=== PATIENT | male | born 1965 | race Caucasian/White ===

== ENCOUNTER 2021-07-19 18:56 | Inpatient (IN) | payer BC ==
[2021-07-19] MEDS ORDERED: NA CHLORIDE 0.9% 1,000 ML ONE ×3 (19:53→22:14)
[2021-07-19 20:15] LABS: Absolute Lymphocytes (CBC) 3.5 K/uL (0.7-4.9); Hematocrit 54.7 % (39.6-49.0); Lymphocytes % 18.6 % (15.3-44.8); MPV 8.1 fL (7.6-11.3)
[2021-07-19 20:16] LABS: Protime INR 1.06
[2021-07-19] MEDS ORDERED: ONDANSETRON 4 MG (ODT) TAB ONE (20:22)
[2021-07-19] MEDS ORDERED: FAMOTIDINE 20 MG/2 ML VIAL IV ONE (20:23)
[2021-07-19] MEDS ORDERED: ALBUTEROL INHALER 60 PUFF/8 GM IH ONE (20:23)
[2021-07-19] MEDS ORDERED: ONDANSETRON 4 MG/2 ML VIAL ONE (20:23)
--- NOTE | 2021-07-19 20:37 | RAD REPORT ---
EXAM DESCRIPTION: RAD - Chest Single View - 07/19/2021 8:26 pm CLINICAL HISTORY: SOB COMPARISON: No comparisons FINDINGS: Lines: None. Lungs: No evidence of edema or pneumonia. Pleural: No significant pleural effusions or pneumothorax. Cardiac: The heart size is within normal limits. Bones: No acute fractures. Other: IMPRESSION: No acute cardiopulmonary disease.
--- NOTE | 2021-07-19 20:46 | RAD REPORT ---
EXAM DESCRIPTION: CT - Head Brain Wo Cont - 07/19/2021 8:32 pm CLINICAL HISTORY: Dizziness COMPARISON: No comparisons TECHNIQUE: All CT scans are performed using dose optimization technique as appropriate and may inclu de automated exposure control or mA/KV adjustment according to patient size. FINDINGS: No intracranial hemorrhage, hydrocephalus or extra-axial fluid collection.No areas of brai n edema or evidence of midline shift. The paranasal sinuses and mastoids are clear. The calvarium is intact. IMPRESSION: No acute intracranial abnormality.
[2021-07-19 21:28] LABS: Urine Blood Negative (Negative); Urine Glucose Negative (Negative); Urine Protein 2+ (Negative); Urine Specific Gravity >=1.030 (1.005-1.030); Urine pH 5.5 (5.0-7.0)
[2021-07-19 21:50] LABS: Barbiturates NEGATIVE (NEGATIVE); Benzodiazepines NEGATIVE (NEGATIVE); Cocaine NEGATIVE (NEGATIVE); METHAMPHETAM NEGATIVE (NEGATIVE); Methadone NEGATIVE (NEGATIVE); Opiates NEGATIVE (NEGATIVE); Phencyclidine NEGATIVE (NEGATIVE); THC Cannibis NEGATIVE (NEGATIVE)
[2021-07-19 21:51] LABS: ALT/SGPT 42 U/L (12-78); AST/SGOT 22 U/L (15-37); Albumin 4.3 g/dL (3.4-5.0); Alkaline Phosphatase 117 U/L (45-117); BUN Blood Urea Nitrogen 38 mg/dL (7-18); Bicarbonate 23 mmol/L (21-32); Bilirubin Direct 0.1 mg/dL (0-0.2); Bilirubin Total 0.4 mg/dL (0.2-1.0); Creatine Phosphokinase 167 U/L (39-308); Glucose Level 113 mg/dL (74-106); Lipase 148 U/L (73-393); Magnesium 2.6 mg/dL (1.8-2.4); NT PRO-BNP 46 pg/mL (<125); Phosphorus 3.4 mg/dL (2.5-4.9); Potassium 3.9 mmol/L (3.5-5.1); Protein, Total 8.3 g/dL (6.4-8.2); Sodium Level 140 mmol/L (136-145); Troponin (Emerg Dept Use Only) < 0.02 ng/mL (0.0-0.045)
--- NOTE | 2021-07-19 22:33 | ER ---
Nurse's Notes [facility] Name: Gurjit Pugh Age: 56 yrs Sex: Male : 1965 Arrival Date: 07/19/2021 Time: 18:57 Bed 28 Private MD: Diagnosis: Acute Kidney Injury;Dehydration Presentation: 07/19 19:00 Chief complaint: Patient states: Pt states "I was outside but I was in the shad and had aa5 plenty of water and I just kept getting exhaustion episodes". Pt describes episodes as generalized weakness, felling lightheaded, and dizzy. Pt reports episodes x 1 year ago but worse today. Pt also reports SOB and vomiting. 19:00 Acuity: CLEOPATRA 2 aa5 19:00 Coronavirus screen: vomiting. Ebola Screen: Patient negative for fever greater than or aa5 equal to 101.5 degrees Fahrenheit, and additional compatible Ebola Virus Disease symptoms. Initial Sepsis Screen: Does the patient meet any 2 criteria? Systolic BP < 90 mmHg. HR > 90 bpm. Does the patient have a suspected source of infection? No. Patient's initial sepsis screen is negative. Risk Assessment: Do you want to hurt yourself or someone else? Patient reports no desire to harm self or others. Onset of symptoms was July 19, 2021. 19:00 Method Of Arrival: Wheelchair aa5 Triage Assessment: 21:55 General: Appears in no apparent distress. General: Appears Behavior is calm, ms4 cooperative. Pain: Denies pain. 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 - Social history:: Smoking status: Patient denies any tobacco usage or history of. Screenin:55 Abuse screen: Denies threats or abuse. Denies injuries from another. Nutritional ms4 screening: No deficits noted. Tuberculosis screening: No symptoms or risk factors identified. Fall Risk None identified. Assessment: 21:21 Also complains of shortness of breath. Reassessment: Patient appears in no apparent ms4 distress at this time. No changes from previously documented assessment. Patient and/or family updated on plan of care and expected duration. Pain level reassessed. Pain: Denies pain. Pain does not radiate. Pain began suddenly. Cardiovascular: No deficits noted. Vital Signs: 19:00 BP 77 / 34; Pulse 110; Resp 20 S; Temp 97.6(O); Pulse Ox 98% on R/A; Weight 113.4 kg aa5 (R); Height 6 ft. 1 in. (185.42 cm) (R); Pain 0/10; 21:21 BP 108 / 70; Pulse 98; Resp 18; Temp 98.2; Pulse Ox 98% ; Pain 0/10; ms4 21:54 BP 95 / 60; Pulse 95; Resp 16; Pulse Ox 96% on R/A; Pain 0/10; ms4 19:00 Body Mass Index 32.98 (113.40 kg, 185.42 cm) [facility] ED Course: 18:57 Patient arrived in ED. as 19:00 Arm band placed on. 5 19:03 Triage completed. 5 19:07 EKG completed in triage. Results shown to MD. [facility] 19:11 Guillermo Grady MD is Attending Physician. 7 19:11 EKG done, by ED staff, reviewed by Guillermo Grady MD. 3 21:45 Blood Culture Sent. ms4 21:45 CORONAVIRUS Sent. ms4 21:45 COVID-19 : Document "Date of Symptom Onset" if Symptomatic. Sent. ms4 21:45 Influenza Screen (a \\T\\ B) Sent. ms4 21:45 UDS Sent. ms4 21:55 Patient has correct armband on for positive identification. classroom monitor on. Pulse ms4 ox on. NIBP on. 21:55 No provider procedures requiring assistance completed. Patient maintains SpO2 ms4 saturation greater than 95% on room air. 22:31 Silvio Dan MD is Hospitalizing Provider. [facility] 23:31 Patient admitted, IV remains in place. bb Administered Medications: 19:33 Drug: NS 0.9% 1000 ml Route: IV; Rate: 1000 ml; Site: right hand; ms4 20:10 Drug: Zofran (Ondansetron) 4 mg Route: IVP; Site: right hand; ms4 20:10 Drug: Pepcid (famotidine) 20 mg Route: IVP; Site: right hand; ms4 20:10 Drug: Albuterol HFA Inhaler 2 puffs Route: Inhalation; ms4 21:21 Drug: NS 0.9% 1000 ml Route: IV; Rate: 1000 ml; Site: right hand; ms4 21:46 Drug: NS 0.9% 1000 ml Route: IV; Rate: 1000 ml; Site: left antecubital; ms4 Outcome: 22:32 Decision to Hospitalize by Provider. [facility] 23:31 Admitted to ER Hold. Please see [facility] for further documentation. bb 23:31 Condition: stable 23:31 Instructed on the need for admit. 07/20 17:27 Patient left the ED. ld1 Signatures: Araseli Bermudez Brenda, RN RN Kate Montano RN RN aa5 Avani Michele [facility] Guillermo Grady MD MD [facility] Penny Clayton RN RN ld1 Audrey Timmons RN RN ms4 Corrections: (The following items were deleted from the chart) 07/19 19:05 19:03 PSHx: None; aa5 aa5
--- NOTE | 2021-07-19 22:33 | EDPHYS ---
Physician Documentation [facility] Name: Gurjit Pugh Age: 56 yrs Sex: Male : 1965 Arrival Date: 07/19/2021 Time: 18:57 Bed 28 Private MD: ED Physician Guillermo Grady HPI: 07/19 19:15 This 56 yrs old Male presents to ER via Wheelchair with complaints of mh7 Shortness Of Breath, Vomiting, General Weakness. 19:15 The patient has shortness of breath at rest, with light activity. Onset: The mh7 symptoms/episode began/occurred today. Duration: The symptoms are continuous, and are unchanged since they started. The patient's shortness of breath is aggravated by exertion, light activity, is alleviated by nothing. Associated signs and symptoms: Pertinent positives: diaphoresis, dizziness, nausea, vomiting, Generalized weakness/fatigue since yesterday, Pertinent negatives: chest pain, non-productive cough, productive cough, fever, hemoptysis, loss of consciousness, numbness in extremities, visual changes. Severity of symptoms: At their worst the symptoms were moderate today, in the emergency department the symptoms are unchanged. Patient reports generalized weakness/fatigue and muscle aches that started yesterday. He states he was out fishing since 5 AM this morning and during the day developed shortness of breath, nausea, vomiting, dizziness with light headed sensation. He denies any headache, fever, chest pain, abdominal pain, cough, diarrhea, dysuria, numbness/tingling, or focal weakness.. 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 - Social history:: Smoking status: Patient denies any tobacco usage or history of. ROS: 19:15 Constitutional: Negative for fever, chills, and weight loss, Eyes: Negative for injury, mh7 pain, redness, and discharge, ENT: Negative for injury, pain, and discharge, Neck: Negative for injury, pain, and swelling, Cardiovascular: Negative for chest pain, palpitations, and edema. 19:15 Back: Negative for injury and pain, : Negative for injury, bleeding, discharge, and swelling, MS/Extremity: Negative for injury and deformity, Skin: Negative for injury, rash, and discoloration, Neuro: Negative for headache, weakness, numbness, tingling, and seizure, Psych: Negative for depression, anxiety, suicide ideation, homicidal ideation, and hallucinations, Allergy/Immunology: Negative for hives, rash, and allergies, Endocrine: Negative for neck swelling, polydipsia, polyuria, polyphagia, and marked weight changes, Hematologic/Lymphatic: Negative for swollen nodes, abnormal bleeding, and unusual bruising. 19:15 Abdomen/GI: Negative for abdominal pain, diarrhea, constipation, abdominal cramps, abdominal distension, anorexia, dysphagia, hematemesis, black/tarry stool, rectal pain, rectal bleeding, bowel incontinence, flatulence. Exam: 19:15 Head/Face: Normocephalic, atraumatic. Eyes: Pupils equal round and reactive to light, mh7 extra-ocular motions intact. Lids and lashes normal. Conjunctiva and sclera are non-icteric and not injected. Cornea within normal limits. Periorbital areas with no swelling, redness, or edema. 19:15 Neck: Trachea midline, no thyromegaly or masses palpated, and no cervical lymphadenopathy. Supple, full range of motion without nuchal rigidity, or vertebral point tenderness. No Meningismus. Chest/axilla: Normal chest wall appearance and motion. Nontender with no deformity. No lesions are appreciated. 19:15 Respiratory: Lungs have equal breath sounds bilaterally, clear to auscultation and percussion. No rales, rhonchi or wheezes noted. No increased work of breathing, no retractions or nasal flaring. Abdomen/GI: Soft, non-tender, with normal bowel sounds. No distension or tympany. No guarding or rebound. No evidence of tenderness throughout. Back: No spinal tenderness. No costovertebral tenderness. Full range of motion. Skin: Warm, dry with normal turgor. Normal color with no rashes, no lesions, and no evidence of cellulitis. MS/ Extremity: Pulses equal, no cyanosis. Neurovascular intact. Full, normal range of motion. 19:15 Psych: Awake, alert, with orientation to person, place and time. Behavior, mood, and affect are within normal limits. 19:15 Constitutional: The patient appears in no acute distress, alert, awake, uncomfortable. 19:15 ENT: Nose: is normal, Mouth: Oral mucosa: dry, Posterior pharynx: is normal, airway is patent, Dental exam: normal, Voice: is normal. 19:15 Cardiovascular: Rate: tachycardic, Rhythm: regular, Pulses: no pulse deficits are appreciated, Heart sounds: normal, normal S1and S2, Edema: is not appreciated, JVD: is not appreciated. 19:15 Neuro: Orientation: is normal, Mentation: is normal, Memory: is normal, Cranial nerves: grossly normal, Cerebellar function: is grossly normal, Motor: is normal, Sensation: is normal, Gait: not tested. seizure activity, is not displayed by the patient, Abnormal movements: there are no abnormal movements. Vital Signs: 19:00 BP 77 / 34; Pulse 110; Resp 20 S; Temp 97.6(O); Pulse Ox 98% on R/A; Weight 113.4 kg aa5 (R); Height 6 ft. 1 in. (185.42 cm) (R); Pain 0/10; 21:21 BP 108 / 70; Pulse 98; Resp 18; Temp 98.2; Pulse Ox 98% ; Pain 0/10; ms4 21:54 BP 95 / 60; Pulse 95; Resp 16; Pulse Ox 96% on R/A; Pain 0/10; ms4 19:00 Body Mass Index 32.98 (113.40 kg, 185.42 cm) aa5 MDM: 22:30 Differential diagnosis: Anemia Anxiety Reaction asthma, Bronchitis CHF exacerbation, mh7 Chronic Obstructive Pulmonary Disease Myocardial Infarction pneumonia, Pneumothorax Psychogenic pulmonary edema, reactive airway disease. Data reviewed: vital signs, nurses notes, lab test result(s), cardiac enzymes, CBC, electrolytes, urinalysis, EKG, radiologic studies, CT scan, plain films. Data interpreted: Pulse oximetry: on room air is 96 %. Interpretation: normal. Counseling: I had a detailed discussion with the patient and/or guardian regarding: the historical points, exam findings, and any diagnostic results supporting the discharge/admit diagnosis, lab results, radiology results, the need for further work-up and treatment in the hospital. Response to treatment: the patient's symptoms have markedly improved after treatment. 22:32 Patient medically screened. [facility] 07/19 19:12 Order name: Basic Metabolic Panel [facility] 07/19 19:12 Order name: CBC with Diff [facility] 07/19 19:12 Order name: LFT's [facility] 07/19 19:12 Order name: Magnesium [facility] 07/19 19:12 Order name: NT PRO-BNP [facility] 07/19 19:12 Order name: PT-INR [facility] 07/19 19:12 Order name: Troponin (emerg Dept Use Only) [facility] 07/19 19:14 Order name: Blood Culture Adult (2) [facility] 07/19 19:14 Order name: Lipase [facility] 07/19 19:14 Order name: Lactate [facility] 07/19 19:14 Order name: Procalcitonin [facility] 07/19 19:22 Order name: CPK [facility] 07/19 19:22 Order name: TSH [facility] 07/19 19:22 Order name: Phosphorus [facility] 07/19 19:22 Order name: UDS [facility] 07/19 19:23 Order name: Influenza Screen (a \\T\\ B) [facility] 07/19 19:23 Order name: COVID-19 : Document "Date of Symptom Onset" if Symptomatic. [facility] 07/19 20:22 Order name: CBC with Automated Diff; Complete Time: 20:24 [facility] 07/19 20:22 Order name: Protime (+INR); Complete Time: 20:24 [facility] 07/19 20:44 Order name: Influenza Screen (A ; Complete Time: 21:17 [facility] 07/19 21:01 Order name: Procalcitonin; Complete Time: 21:17 [facility] 07/19 21:10 Order name: SARS-COV-2 RT PCR; Complete Time: 21:17 [facility] 07/19 21:15 Order name: Lactate; Complete Time: 21:17 [facility] 07/19 21:28 Order name: Urine Dipstick-Ancillary; Complete Time: 21:32 [facility] 07/19 21:28 Order name: CORONAVIRUS [facility] 07/19 21:29 Order name: Blood Culture [facility] 07/19 21:50 Order name: Urine Drug Screen; Complete Time: 22:20 [facility] 07/19 21:51 Order name: Basic Metabolic Panel; Complete Time: 22:09 [facility] 07/19 21:51 Order name: Liver (Hepatic) Function; Complete Time: 22:20 [facility] 07/19 21:51 Order name: Phosphorus; Complete Time: 22:20 [facility] 07/19 19:12 Order name: XRAY Chest (1 view) [facility] 07/19 19:22 Order name: CT Head Brain wo Cont [facility] 07/19 20:38 Order name: RAD; Complete Time: 20:40 [facility] 07/19 20:47 Order name: CT; Complete Time: 21:17 [facility] 07/19 21:51 Order name: Creatine Phosphokinase; Complete Time: 22:20 [facility] 07/19 21:51 Order name: Troponin (Emerg Dept Use Only); Complete Time: 22:20 [facility] 07/19 21:51 Order name: NT PRO-BNP; Complete Time: 22:20 [facility] 07/19 21:51 Order name: Magnesium; Complete Time: 22:20 [facility] 07/19 21:51 Order name: Lipase; Complete Time: 22:20 [facility] 07/19 21:51 Order name: Thyroid Stimulating Hormone; Complete Time: 22:20 [facility] 07/19 21:56 Order name: Blood Culture [facility] 07/19 21:56 Order name: Blood Culture [facility] 07/19 22:01 Order name: Urine Dipstick-Ancillary [facility] 07/19 23:52 Order name: Lactate Sepsis 2 HR Follow-up [facility] 07/20 03:12 Order name: CBC with Automated Diff [facility] 07/20 03:26 Order name: Comprehensive Metabolic Panel [facility] 07/20 03:26 Order name: Uric Acid [facility] 07/20 03:26 Order name: Creatine Phosphokinase [facility] 07/20 03:26 Order name: Lipid Profile [facility] 07/20 03:26 Order name: T4 Free [facility] 07/20 03:26 Order name: Magnesium [facility] 07/20 03:26 Order name: Thyroid Stimulating Hormone [facility] 07/20 06:09 Order name: Procalcitonin [facility] 07/20 10:09 Order name: US [facility] 07/20 12:23 Order name: UR PROTEIN [facility] 07/20 15:46 Order name: Urine Dipstick-Ancillary [facility] 07/20 16:48 Order name: Urinalysis [facility] 07/19 19:12 Order name: EKG; Complete Time: 21:18 [facility] 07/19 19:12 Order name: Cardiac monitoring; Complete Time: 19:55 [facility] 07/19 19:12 Order name: EKG - Nurse/Tech; Complete Time: 19:55 [facility] 07/19 19:12 Order name: IV Saline Lock; Complete Time: 19:55 [facility] 07/19 19:12 Order name: Labs collected and sent; Complete Time: 19:55 [facility] 07/19 19:12 Order name: O2 Per Protocol; Complete Time: 19:55 [facility] 07/19 19:12 Order name: O2 Sat Monitoring; Complete Time: 19:55 [facility] 07/19 19:12 Order name: Urine Dipstick-Ancillary (obtain specimen); Complete Time: 21:45 Administered Medications: 19:33 Drug: NS 0.9% 1000 ml Route: IV; Rate: 1000 ml; Site: right hand; ms4 20:10 Drug: Zofran (Ondansetron) 4 mg Route: IVP; Site: right hand; ms4 20:10 Drug: Pepcid (famotidine) 20 mg Route: IVP; Site: right hand; ms4 20:10 Drug: Albuterol HFA Inhaler 2 puffs Route: Inhalation; ms4 21:21 Drug: NS 0.9% 1000 ml Route: IV; Rate: 1000 ml; Site: right hand; ms4 21:46 Drug: NS 0.9% 1000 ml Route: IV; Rate: 1000 ml; Site: left antecubital; ms4 Disposition Summary: 07/19/21 22:32 Hospitalization Ordered Hospitalization Status: Inpatient Admission [facility] Provider: Silvio Dan Josué Condition: Stable [facility] Problem: new [facility] Symptoms: have improved [facility] Bed/Room Type: Standard [facility] Location: Telemetry/MedSurg (Inpatient)(07/20/21 16:16) Room Assignment: 212(07/20/21 16:16) bd Diagnosis - Acute Kidney Injury [facility] - Dehydration [facility] Forms: - Medication Reconciliation Form [facility] - SBAR form [facility] Signatures: Dispatcher [employer] EDMS Candy Mares Audri, RN RN aa5 Tee Armstrong, PATENT LAWYER-C PATENT LAWYER-Cla1 Gaby Sandoval RN RN Guillermo Grady MD MD 7 Audrey Timmons RN RN ms4 Corrections: (The following items were deleted from the chart) 19:03 PSHx: None; aa5 aa5 07/20 01:34 07/19 22:32 [place] [facility] [place] 01:34 07/19 22:32 [facility] 16:16 01:34 [facility] ER HOLD cg bd 16:16 01:34 ERHOLD- cg bd
--- NOTE | 2021-07-19 22:46 | P.HP ---
Certification for Inpatient Patient admitted to: Inpatient With expected LOS: >2 Midnights Patient will require the following post-hospital care: None Practitioner: I am a practitioner with admitting privileges, knowledge of patient current condition, hospital course, and medical plan of care. Services: Services provided to patient in accordance with Admission requirements found in Title 42 Section 412.3 of the Code of Federal Regulations Patient History Date of Service: 07/19/21 Primary Care Provider: Dr. Kendrick Reason for admission: Acute renal failure History of Present Illness: 56-year-old male with history of hypertension presents emergency department for weakness, near syncope. Upon arrival to the emergency department patient blood pressure was 70/30, patient reports that he was out fishing all day in the previous day working on his boat. Patient was evaluated in the emergency room and labs are significant for white blood cell count 18.8 hemoglobin 18.3 sodium 140 chloride 109 creatinine 3.25 GFR 20 BUN 38 lactic acid 3.1 procalcitonin 0.06 urinalysis with 2+ protein. Chest x-ray negative for any acute findings, patient was given 3 L normal saline bolus in emergency department blood pressure has improved to 108/67 at this time. Patient does admit to taking lisinopril 10 mg daily at home. ED provider assist admit for further evaluation and management of acute renal failure. 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, lives with - Family History Mother -: Heart disease Father -: Diabetes, Stroke - Social History Smoking Status: Never smoker Alcohol use: No CD- Drugs: No Caffeine use: Yes Place of Residence: Home Review of Systems 10-point ROS is otherwise unremarkable General: Weakness Respiratory: Shortness of Breath Cardiovascular: Light Headedness, As per HPI Physical Examination - Physical Exam General: Alert, In no apparent distress HEENT: Atraumatic, PERRLA, Other (Mucous membranes dry), EOMI, Sclerae nonicteric Neck: Supple, 2+ carotid pulse no bruit, No LAD, Without JVD or thyroid abnormality Respiratory: Clear to auscultation bilaterally, Normal air movement Cardiovascular: Regular rate/rhythm, Normal S1 S2 Gastrointestinal: Normal bowel sounds, No tenderness Musculoskeletal: No tenderness Integumentary: No rashes Neurological: Normal gait, Normal speech, Normal strength at 5/5 x4 extr, Normal tone, Normal affect Lymphatics: No axilla or inguinal lymphadenopathy - Studies Laboratory Data (last 24 hrs) 07/19/21 21:11: Sodium 140, Potassium 3.9, BUN 38 H, Creatinine 3.25 H, Glucose 113 H, Phosphorus 3.4, Magnesium 2.6 H, Total Bilirubin 0.4, AST 22, ALT 42, Alkaline Phosphatase 117, Lipase 148 07/19/21 19:25: PT 12.2, INR 1.06 07/19/21 19:25: WBC 18.80 H, Hgb 18.3 H, Hct 54.7 H, Plt Count 395 07/19/21 19:12: PT Cancelled, INR Cancelled 07/19/21 19:12: WBC Cancelled, Hgb Cancelled, Hct Cancelled, Plt Count Cancelled 07/19/21 19:12: Sodium Cancelled, Potassium Cancelled, BUN Cancelled, Creatinine Cancelled, Glucose Cancelled, Phosphorus Cancelled, Magnesium Cancelled, Total Bilirubin Cancelled, AST Cancelled, ALT Cancelled, Alkaline Phosphatase Cancelled, Lipase Cancelled Microbiology Data (last 24 hrs): 07/19/21 19:25 Nasopharnyx Influenza Type A Antigen Screen - Final 07/19/21 19:25 Nasopharnyx Influenza Type B Antigen Screen - Final Assessment and Plan - Plan Assessment: Acute renal failure Hypertension currently with hypotension Plan: Acute renal failure: Patient received 3 L normal saline bolus in the ER continue with NS at 100 cc/h, nephrology consulted obtain renal ultrasound, CPK, uric acid levels. Anticipate clinical improvement over the course the next 24 to 48 hours. We will hold off on any NSAIDs, hold patient's lisinopril. Hypertension currently with hypotension: Blood pressure improved after fluid bolus currently around 105 systolic we will continue to monitor closely hold LEE/ARB. DVT PPX: Heparin Code status: Full Discharge Plan: Home Plan to discharge in: 48 Hours - Advance Directives Does patient have a Living Will: No Does patient have a Durable POA for Healthcare: No - Code Status/Comfort Care Code Status Assessed: Yes (Full code) Critical Care: No Time Spent Managing Pts Care (In Minutes): 55
[2021-07-19 23:23] VITALS: BMI 33.9
[2021-07-20] MEDS ORDERED: NA CHLORIDE 0.9% 1,000 ML ONE ×3 (00:01→16:03)
[2021-07-20] MEDS: NA CHLORIDE 0.9% 1,000 ML IV SCH ×3 (00:04→19:56)
[2021-07-20] MEDS ORDERED: ACETAMINOPHEN 500 MG TAB PO PRN (00:04)
[2021-07-20] MEDS ORDERED: ONDANSETRON 4 MG/2 ML VIAL IV PRN (00:04)
[2021-07-20 03:02] LABS: Absolute Lymphocytes (CBC) 3.3 K/uL (0.7-4.9); Basophils % 1.1 % (0-1.3); Hematocrit 42.3 % (39.6-49.0); RBC Red Blood Cell Count 5.09 M/uL (4.33-5.43)
[2021-07-20 03:25] LABS: Albumin 3.4 g/dL (3.4-5.0); Bilirubin Total 0.3 mg/dL (0.2-1.0); Magnesium 2.3 mg/dL (1.8-2.4); Potassium 4.1 mmol/L (3.5-5.1); Protein, Total 6.7 g/dL (6.4-8.2); Thyroid Stimulating Hormone 0.922 uIU/mL (0.360-3.740); Uric Acid 8.9 mg/dL (3.5-7.2)
--- NOTE | 2021-07-20 06:48 | P.PN ---
Subjective Date of Service: 07/20/21 Primary Care Provider: Dr. Kendrick Chief Complaint: Acute renal failure Subjective: Improving (Patient reports feeling better now that he is received IV fluids, reports usual urine output, he does endorse urinary hesitancy over the last year, occasional interruption of stream, no nocturia) Review of Systems 10-point ROS is otherwise unremarkable Physical Examination - Vital Signs Temperature: 97.8 F Blood Pressure: 92/74 Pulse: 91 Respirations: 17 Pulse Ox (%): 96 - Studies Laboratory Data (last 24 hrs) 07/19/21 21:11: Sodium 140, Potassium 3.9, BUN 38 H, Creatinine 3.25 H, Glucose 113 H, Phosphorus 3.4, Magnesium 2.6 H, Total Bilirubin 0.4, AST 22, ALT 42, Alkaline Phosphatase 117, Lipase 148 07/19/21 19:25: PT 12.2, INR 1.06 07/19/21 19:25: WBC 18.80 H, Hgb 18.3 H, Hct 54.7 H, Plt Count 395 07/19/21 19:12: PT Cancelled, INR Cancelled 07/19/21 19:12: WBC Cancelled, Hgb Cancelled, Hct Cancelled, Plt Count Cancelled 07/19/21 19:12: Sodium Cancelled, Potassium Cancelled, BUN Cancelled, Creatinine Cancelled, Glucose Cancelled, Phosphorus Cancelled, Magnesium Cancelled, Total Bilirubin Cancelled, AST Cancelled, ALT Cancelled, Alkaline Phosphatase Cancelled, Lipase Cancelled Microbiology Data (last 24 hrs): 07/19/21 19:25 Nasopharnyx Influenza Type A Antigen Screen - Final 07/19/21 19:25 Nasopharnyx Influenza Type B Antigen Screen - Final Assessment & Plan Physician Review Additional Text: Physical exam GEN: Alert, oriented, NAD HEENT: Normal conjunctiva, sclera anicteric CV: Regular rate and rhythm, no edema Pulm: Nonlabored respiration on room air ABD: Soft, nontender, nondistended MSK: No joint tenderness Integumentary: No rashes Neuro: Normal speech, normal affect Problem List Acute renal failure Hypotension, history of hypertension Received a 3 L normal saline bolus in the ER, continue normal saline 100 cc/hour Blood pressure slightly improving Suspect acute renal failure secondary to dehydration/heat exhaustion. Patient was out fishing for most of the day, drinks 5 water bottles, was sweating profusely, reports did not urinate throughout the entire day. Nephrology consulted, renal ultrasound ordered JASKARAN slightly improving Hold lisinopril, avoid other nephrotoxic agents Review of systems positive for BPH symptoms, urinary hesitancy, intermittent interruption of stream, denies nocturia. Check postvoid residual. May benefit from Flomax Reports he only takes maybe 1 ibuprofen every 1-2 weeks. Strict I/Os -discussed with patient and nurse this morning Dispo: Anticipate DC home in 1-2 days Time Spent Managing Pts Care (In Minutes): 35
[2021-07-20] MEDS ORDERED: HEPARIN 5000 UNIT/ML 1 ML VIAL ONE (08:19)
[2021-07-20] MEDS ORDERED: CEFTRIAXONE/SWI 1gm 1 GM/10 ML SYR ONE (08:19)
[2021-07-20] MEDS: CEFTRIAXONE/SWI 1gm 1 GM/10 ML SYR IV SCH (09:00)
[2021-07-20] MEDS ORDERED: CEFTRIAXONE 1 GM/NS 50 ML 1 GM/50 ML BAG IV SCH (09:00)
[2021-07-20] MEDS: HEPARIN 5000 UNIT/ML 1 ML VIAL SQ SCH ×2 (09:00→19:51)
--- NOTE | 2021-07-20 10:09 | RAD REPORT ---
EXAM DESCRIPTION: US - Renal Ultrasound-Complete - 07/20/2021 12:45 am CLINICAL HISTORY: Acute renal failure COMPARISON: None. FINDINGS: The right kidney measures 11 cm with an increased echotexture. The left kidney measures 12 cm with an increased echotexture. Hydronephrosis is not seen. No gross abnormality of bladder is seen IMPRESSION: Mildly increased renal echotexture may indicate parenchymal disease
[2021-07-20 15:46] LABS: Urine Blood Negative (Negative); Urine Glucose Negative (Negative); Urine Protein Negative (Negative); Urine Specific Gravity 1.015 (1.005-1.030)
[2021-07-20 16:39] LABS: Urine Appearance CLEAR (Clear); Urine Bilirubin NEGATIVE (Negative); Urine Blood NEGATIVE (Negative); Urine Color YELLOW (Yellow); Urine Glucose NEGATIVE (Negative); Urine Protein NEGATIVE (Negative); Urine Urobilinogen 0.2 mg/dL (0.2-1.0)
[2021-07-20 16:48] LABS: Urine Microscopic Reflex NO UMIC
[2021-07-20 22:09] VITALS: O2SAT 98
--- NOTE | 2021-07-20 23:51 | CON ---
Date of Consultation: 07/20/2021 Chief Complaint: Acute kidney injury. History Of Present Illness: The patient is a 56-year-old man with history of hypertension, presented to the hospital because of weakness, near syncope. His blood pressure in outpatient was below target range. In the emergency room, systolic blood pressure was 70, diastolics 30. The patient reported that he was out and fishing all day, and the previous day working on his boat. He came to emergency room and blood work showed elevated BUN up to 38, lactic acid 3.1, creatinine 3.25, sodium is 140, chloride 109. Procalcitonin 0.6. Urinalysis showed 2+ protein. Chest x-ray was negative for acute findings. Blood pressure stabilized after IV fluids were bolused and norepinephrine was administered, and systolic blood pressure improved to 108 and diastolic to 67. The patient was taking lisinopril for blood pressure control. The patient denies history of diabetes mellitus. Denies history of kidney disease in the past. Review of Systems: Constitutional: Denies fever, chills. Eyes: Denies vision changes. Ears, Nose, Mouth, and Throat: Denies sore throat, earache. Respiratory: Denies PND, orthopnea. Cardiovascular: Complaining of generalized weakness, near syncope. Denies wheezing, cough, hemoptysis. GI: Denies nausea, vomiting. : Denies dysuria, hematuria. Musculoskeletal: Complained of generalized weakness. Denies gout. All other systems reviewed and all are negative. Past Medical History: Hypertension. 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 Family History: Heart disease in the mother. Diabetes and stroke in his father. Social History: Denies tobacco, alcohol, or illicit drugs. Physical Examination: General: The patient is alert, oriented, not in acute distress. Eyes: Anicteric sclerae. EOMI. Ears, Nose, Mouth, and Throat: Oral mucosa moist. No pallor. Neck: Supple. No bruits. Lungs: Clear to auscultation bilaterally. Heart: S1, S2. No pericardial friction rub. Abdomen: Soft, benign. Extremities: No edema. No clubbing. No cyanosis. Neurological: Moving extremities. Cranial nerves intact. Laboratory Data: Sodium 140, potassium 3.9, BUN 38, creatinine 3.25, glucose 113. Phosphorus 3.4, magnesium 2.6. Total bilirubin 0.4, AST 22, ALT 42. Lipase 148. INR 1.06, PT 12.2. WBC 18.8, platelet count 325,000. Impression And Plan: Acute kidney injury, severe, nonoliguric, not associated with lower urinary tract symptoms. The patient denies previous history of obstructive uropathy, prostate problem, kidney stone. He presented to the hospital with hypovolemia of severe degree. The patient was hypotensive and was found to have elevated white count. The patient is undergoing workup for sepsis. The patient was started on normal saline for volume resuscitation to control severe volume depletion and hypotension. Renal ultrasound was ordered to rule out obstructive uropathy. The patient will continue normal saline infusion for volume control and to treat acute kidney injury. The patient was taking lisinopril. Acute kidney injury is due to severe hypovolemia with superimposed effect of ACEI. Possible effect of nonsteroidal anti-inflammatory medication, although the patient admits he takes nonsteroidal anti-inflammatory medications on rare occasions, on average once a week and he has not had nonsteroidal anti-inflammatory medication for at least 3 to 4 days. Hypertension. Blood pressure medication on hold. Lisinopril is on hold due to acute kidney injury. Proteinuria. Plan is to evaluate for significant proteinuria to check for any evidence of monoclonal gammopathy of unknown significance. Monitor urine protein-creatinine ratio. Urinalysis will be done to check for abnormal urinary sediment. Further recommendation when work-up results available. SEJAL Voice ID: [id number] Report ID: [id number] ZEV
[2021-07-21] MEDS: NA CHLORIDE 0.9% 1,000 ML IV SCH (02:00)
[2021-07-21 06:24] LABS: Absolute Lymphocytes (CBC) 3.1 K/uL (0.7-4.9); Basophils % 2.6 % (0-1.3); Lymphocytes % 35.7 % (15.3-44.8); MPV 8.1 fL (7.6-11.3); RBC Red Blood Cell Count 4.98 M/uL (4.33-5.43)
[2021-07-21 06:30] LABS: Albumin 3.5 g/dL (3.4-5.0); Bilirubin Total 0.4 mg/dL (0.2-1.0); Magnesium 2.3 mg/dL (1.8-2.4); Potassium 4.3 mmol/L (3.5-5.1); Protein, Total 6.7 g/dL (6.4-8.2); Uric Acid 6.5 mg/dL (3.5-7.2)
[2021-07-21] MEDS: CEFTRIAXONE/SWI 1gm 1 GM/10 ML SYR IV SCH (08:50)
[2021-07-21] MEDS: HEPARIN 5000 UNIT/ML 1 ML VIAL SQ SCH (08:50)
--- NOTE | 2021-07-21 10:59 | EKG ---
Test Date: 2021-07-19 Test Time: 19:07:42 [employer] Bed Worker: ALFONSO MEASUREMENT RESULTS: Intervals: Rate: 106 OK: 128 QRSD: 78 QT: 340 QTc: 451 [place]: P: -3 OK: 128 QRS: 10 T: 72 INTERPRETIVE STATEMENTS: Sinus tachycardia Otherwise normal ECG No previous ECG available for comparison Electronically Signed On 07-21-21 10:54:29 CDT by Osvaldo Lima
[2021-07-21] MEDS ORDERED: NA CHLORIDE 0.9% 1,000 ML IV SCH (12:32)
--- NOTE | 2021-07-21 13:16 | P.DS ---
Admission Date: 07/19/21 Discharge Date: 07/21/21 Primary Care Provider: Dr. Kendrick Disposition: ROUTINE DISCHARGE Discharge Condition: FAIR Reason for Admission: Acute renal failure - Problems (1) Acute renal failure Status: Acute (2) Hypotension Status: Acute Brief History of Present Illness: 56-year-old gentleman with a history of hypertension presented to the emergency department with a complaint of near syncope. Patient noted to be hypotensive. He was out fishing all day the previous day working on his boat. Workup in the emergency department revealed leukocytosis, elevated hematocrit sodium of 140 creatinine of 3.25, lactic acid of 3.1. Labs suggesting significant dehydration. Chest x-ray unremarkable patient uses treated with IV normal saline. His blood pressure responded to IV fluid patient was hospitalized for further management. Hospital Course: Patient diagnosed with acute renal failure secondary to dehydration. Syncopal episode secondary to hypovolemia. Patient resuscitated with IV fluid. Leukocytosis resolved, acute renal failure resolved. His home dose lisinopril was held. Patient clinically improved and deemed stable for discharge. He is able to ambulate without issues and currently asymptomatic. Vital Signs/Physical Exam: Temp Pulse Resp BP Pulse Ox 97.1 F 77 16 122/86 98 07/21/21 08:00 07/21/21 08:00 07/21/21 08:00 07/21/21 08:00 07/21/21 08:00 General: Alert, In no apparent distress, Oriented x3 HEENT: Mucous membr. moist/pink Neck: JVD not distended Respiratory: Clear to auscultation bilaterally, Normal air movement Cardiovascular: No edema, Regular rate/rhythm, Normal S1 S2 Gastrointestinal: Soft and benign, Non-distended Musculoskeletal: No swelling Integumentary: No rashes, No erythema Neurological: Normal speech, Normal strength at 5/5 x4 extr, Cranial nerves 3-12 intact Lymphatics: No axilla or inguinal lymphadenopathy Laboratory Data at Discharge: WBC 8.50 K/uL (4.3-10.9) D 07/21/21 05:25 Hgb 14.0 g/dL (13.6-17.9) 07/21/21 05:25 Hct 42.0 % (39.6-49.0) 07/21/21 05:25 Plt Count 231 K/uL (152-406) 07/21/21 05:25 PT 12.2 SECONDS (9.5-12.5) 07/19/21 19:25 INR 1.06 07/19/21 19:25 Sodium 142 mmol/L (136-145) 07/21/21 05:25 Potassium 4.3 mmol/L (3.5-5.1) 07/21/21 05:25 BUN 20 mg/dL (7-18) H 07/21/21 05:25 Creatinine 0.99 mg/dL (0.55-1.3) D 07/21/21 05:25 Glucose 94 mg/dL (74-106) 07/21/21 05:25 Uric Acid 6.5 mg/dL (3.5-7.2) D 07/21/21 05:25 Phosphorus 3.4 mg/dL (2.5-4.9) 07/19/21 21:11 Magnesium 2.3 mg/dL (1.8-2.4) 07/21/21 05:25 Total Bilirubin 0.4 mg/dL (0.2-1.0) 07/21/21 05:25 AST 18 U/L (15-37) 07/21/21 05:25 ALT 31 U/L (12-78) 07/21/21 05:25 Alkaline Phosphatase 97 U/L (45-117) 07/21/21 05:25 Triglycerides 117 mg/dL (<150) 07/20/21 02:14 Cholesterol 154 mg/dL (<200) 07/20/21 02:14 HDL Cholesterol 50 mg/dL (40-60) 07/20/21 02:14 Cholesterol/HDL Ratio 3.08 07/20/21 02:14 Lipase 148 U/L (73-393) 07/19/21 21:11 Home Medications: Venlafaxine HCl [Effexor] 300 mg PO DAILY 07/19/21 Diet: AHA Activity: Ad sary Followup: NONE,NONE [Primary Care Provider] - 1-2 Weeks Time spent managing pt's care (in minutes): 35
[2021-07-21 13:23] VITALS: BP 139/85; TEMP 97.6
--- NOTE | 2021-07-21 14:01 | PN ---
Date of Progress Note: 07/21/2021 Subjective: The patient was admitted with acute kidney injury. Creatinine nimco to 3.2 with GFR of 20. His acute kidney injury was secondary to prerenal, toxic ATN secondary to UTI. After hydration, kidney function normalized. Physical Examination: Vital Signs: Blood pressure 122/86, pulse of 77. The patient had good urine output of 1400. Chest: Clear to auscultation. Heart: S1, S2. Regular. Abdomen: Soft, nontender. Extremity: Trace edema. Neurologic: Alert. No focality. Laboratory Data: Sodium 142, potassium 4.3, bicarb 25, BUN 20, creatinine 0.9, calcium 8.1, uric acid 6.5. Albumin 3.5. WBC 8.5, H and H 14/42. Urinalysis negative for infection. Current Medications: The patient on include; 1. Ceftriaxone. 2. Tylenol. 3. IV fluid 100 per hour. Assessment And Plan: 1. Acute kidney injury secondary to prerenal, recovered, resolved. Normal size kidney. Obstructive uropathy has been ruled out. I am going to go ahead and decrease IV fluid to 50 per hour and we will continue to monitor the patient. We will keep holding lisinopril and nonsteroid, and we will monitor the patient. 2. Hypertension with the presence of hypotension on the presentation. Keep holding all blood pressure medications, especially LEE inhibitor. 3. Hyperuricemia secondary to dehydration, improving. Decrease IV fluid and we will monitor. 4. Hypernatremia, stable. Continue IV fluid. 5. Urinary tract infection. Continue ceftriaxone. Culture negative. Time spent examining the patient [id number] placing order discussing with the patient reviewing data discussing the case with all of our subspecialty including hospitalist 45 minutes ROBYN Voice ID: [id number] Report ID: [id number] ZEV
== END 2021-07-21 14:44 | disposition home or self-care (01) | DRG 683 ==
LOC: ER 18:56 → ERHOLD 23:03 → 2ND 07-20 17:11
PROVIDERS: ADMIT Hospitalist; ATTEND Hospitalist
DX: N17.0 Acute kidney failure with tubular necrosis (principal); N39.0 Urinary tract infection, site not specified; E87.0 Hyperosmolality and hypernatremia; I95.9 Hypotension, unspecified; T67.5XXA Heat exhaustion, unspecified, initial encounter; E86.0 Dehydration; N40.1 Benign prostatic hyperplasia with lower urinary tract symptoms; R39.11 Hesitancy of micturition; E86.1 Hypovolemia; R55 Syncope and collapse; R80.9 Proteinuria, unspecified; I10 Essential (primary) hypertension; E79.0 Hyperuricemia without signs of inflammatory arthritis and tophaceous disease; Z20.822 Contact with and (suspected) exposure to COVID-19
CPT/HCPCS: 36415; 70450; 71045; 76770; 80048; 80053; 80061; 80076; 80307; 81003; 82550; 82570; 83605; 83690; 83735; 83880; 84100; 84145; 84156; 84300; 84439; 84443; 84484; 84550; 85025; 85610; 87040; 87804; 93005; 96374; 96375; 99285; J0696; J1644; J2405; J7030; U0003